=== PATIENT | female | born 1960 | race Caucasian/White ===

== ENCOUNTER 2017-12-05 05:14 | Inpatient (IN) | payer MEDICARE, OTHER ==
[2017-12-05] MEDS: CEFAZOLIN 2 GM/50 ML (PMX) 50 ML IVPB (05:30)
[2017-12-05] MEDS: SOD CHLORIDE 0.9% 50 ML, TRANEXAMIC ACID 1,000 MG IRR (05:30)
[2017-12-05] MEDS: LACTATED RINGER'S 1,000 ML IV* (06:19)
[2017-12-05] MEDS: ACETAMINOPHEN 1000MG/100ML IV 100 ML IVPB (06:19)
[2017-12-05] MEDS: DEXAMETHASONE 4 MG/ML 1 ML INJ IV (06:20)
[2017-12-05] MEDS: oxyCODONE (CR) 10 MG TAB [oxyCONTIN] PO (06:20)
[2017-12-05] MEDS: ONDANSETRON 4 MG INJ IV ×4 (06:20→23:25)
[2017-12-05] MEDS: LANSOPRAZOLE 30 MG CAP PO (06:20)
[2017-12-05] MEDS ORDERED: EPHEDrine SULFATE 50 MG/5 ML SYG (07:00)
[2017-12-05] MEDS ORDERED: CEFAZOLIN 1 GM INJ (07:00)
[2017-12-05] MEDS: TRANEXAMIC ACID 1,000 MG in DEXTROSE 5% 100 ML IVPB ×2 (07:41→10:05)
[2017-12-05] MEDS ORDERED: PROPOFOL 20 ML (07:44)
[2017-12-05] MEDS ORDERED: FENTAnyl 50 MCG/ML VIAL (07:44)
[2017-12-05] MEDS ORDERED: LIDOCAINE 2% (SDV) 5 ML INJ (07:44)
[2017-12-05] MEDS ORDERED: MIDAZOLAM 1 MG/ML 2 ML INJ (07:44)
[2017-12-05] MEDS ORDERED: METOCLOPRAMIDE 10 MG INJ (08:20)
[2017-12-05] MEDS ORDERED: FAMOTIDINE 20 MG INJ (08:20)
[2017-12-05] MEDS ORDERED: ONDANSETRON 4 MG INJ (08:20)
[2017-12-05] MEDS: BACITRACIN 50000 UNITS INJ (08:58)
[2017-12-05] MEDS: POLYMYXIN B 500000 UNIT INJ (08:58)
[2017-12-05] MEDS ORDERED: MEPERIDINE 25 MG INJ IV (09:30)
[2017-12-05] MEDS ORDERED: ONDANSETRON 4 MG INJ IV (09:30)
[2017-12-05] MEDS ORDERED: PROCHLORPERAZINE 10 MG INJ IV (09:30)
[2017-12-05] MEDS ORDERED: FENTAnyl 50 MCG/ML VIAL IV (09:30)
[2017-12-05] MEDS ORDERED: DIPHENHYDRAMINE 50 MG INJ IV (09:30)
[2017-12-05] MEDS: POLYMYXIN/BACITRACIN 1L IRRIG (11:21)
[2017-12-05] MEDS ORDERED: SENNA/DOCUSATE NA (8.6MG/50MG) TAB PO (11:30)
[2017-12-05] MEDS ORDERED: NALOXONE (0.4 MG/ML) INJ IV (11:30)
[2017-12-05] MEDS ORDERED: traMADol 50 MG TAB PO (11:30)
[2017-12-05] MEDS ORDERED: TRIMETHOBENZAMIDE 100 MG/ML VIAL IM (11:30)
[2017-12-05] MEDS ORDERED: oxyCODONE 5 MG TAB PO (11:30)
[2017-12-05] MEDS ORDERED: BETHANECHOL 25 MG TAB PO (11:30)
[2017-12-05] MEDS ORDERED: ZOLPIDEM 5 MG TAB PO (11:30)
[2017-12-05] MEDS ORDERED: NACL 0.9% 3 ML SYG IV (11:30)
[2017-12-05] MEDS ORDERED: NA PHOSPHATE/BIPHOS 133 ML ENEMA PR (11:30)
[2017-12-05] MEDS: ASPIRIN (EC) 325 MG TAB PO ×2 (11:56→20:12)
[2017-12-05] MEDS: DOCUSATE SODIUM 100 MG CAP PO (11:56)
[2017-12-05] MEDS: CEFAZOLIN 1 GM/50 ML (PMX) 50 ML IVPB ×2 (12:00→20:09)
[2017-12-05] MEDS: HYDROmorphONE (0.2 MG/ML) 10ML SYG IV ×2 (12:03→13:41)
[2017-12-05] MEDS: SOD CHLORIDE 0.9% 1,000 ML IV ×2 (13:15→23:27)
[2017-12-05] MEDS: HIP PAIN COCKTAIL (CEFUROXIME) INJ (13:20)
[2017-12-05] MEDS: oxyCODONE 5 MG TAB PO ×2 (14:53→18:37)
[2017-12-05] MEDS ORDERED: GLUCOSE GEL 15 GRAM TUBE PO ×2 (16:00)
[2017-12-05] MEDS ORDERED: GLUCOSE GEL 15 GRAM TUBE BUCCAL (16:00)
[2017-12-05] MEDS ORDERED: DEXTROSE 50% 50 ML SYRINGE IV ×2 (16:00)
[2017-12-05] MEDS ORDERED: GLUCAGON 1 MG INJ IM (16:00)
[2017-12-05] MEDS: GABAPENTIN 100 MG CAP PO (20:12)
[2017-12-05] MEDS: ATORVASTATIN 40 MG TAB PO (20:12)
[2017-12-06] MEDS: DIPHENHYDRAMINE 50 MG INJ IM (00:09)
[2017-12-06] MEDS: CEFAZOLIN 1 GM/50 ML (PMX) 50 ML IVPB (04:15)
[2017-12-06 05:00] LABS: ADD MAN DIFF? NO
[2017-12-06 05:05] LABS: BASOPHILS % 0.2 % (0.0-2.0); HEMATOCRIT 27.7 % (37.0-47.0); LYMPHOCYTES # 1.9 10^3/ul (0.8-2.9); LYMPHOCYTES % 15.4 % (15.0-51.0); MEAN CORPUSCULAR HEMOGLOBIN 29.7 pg (29.0-33.0); MEAN CORPUSCULAR HGB CONC 32.5 g/dl (32.0-37.0); MEAN CORPUSCULAR VOLUME 91.4 fl (82.0-101.0); MEAN PLATELET VOLUME 9.3 fl (7.4-10.4); MONOCYTE # 1.1 10^3/ul (0.3-0.9); MONOCYTES % 8.6 % (0.0-11.0); NEUTROPHIL # 9.1 10^3/ul (1.6-7.5); NEUTROPHILS % 75.3 % (39.0-77.0); PLATELET COUNT 234 10^3/UL (140-415); RED BLOOD COUNT 3.03 10^6/ul (4.20-5.40); RED CELL DISTRIBUTION WIDTH 13.8 % (11.5-14.5)
[2017-12-06 05:05] LABS: WHITE BLOOD COUNT 12.2 10^3/ul (4.8-10.8)
[2017-12-06 05:25] LABS: ANION GAP 13 (8-16); BLOOD UREA NITROGEN 13 mg/dl (7-20); CALCIUM 8.3 mg/dl (8.4-10.2); CARBON DIOXIDE 31 mmol/L (21-31); CHLORIDE 103 mmol/L (97-110); CREATININE 0.91 mg/dl (0.44-1.00); GLUCOSE 118 mg/dl (70-220); POTASSIUM 4.2 mmol/L (3.5-5.1); SODIUM 143 mmol/L (135-144)
[2017-12-06 05:28] LABS: MAGNESIUM 1.9 mg/dl (1.7-2.5)
[2017-12-06] MEDS: PANTOPRAZOLE (EC) 40 MG TAB PO (05:40)
[2017-12-06] MEDS: ONDANSETRON 4 MG INJ IV (05:40)
[2017-12-06] MEDS: METOPROLOL 50 MG TAB PO (08:37)
[2017-12-06] MEDS: DOCUSATE SODIUM 100 MG CAP PO ×2 (08:42→20:25)
[2017-12-06] MEDS: oxyCODONE 5 MG TAB PO ×3 (08:42→20:24)
[2017-12-06] MEDS: ASPIRIN (EC) 325 MG TAB PO ×2 (08:42→20:25)
[2017-12-06] MEDS: GABAPENTIN 100 MG CAP PO ×2 (08:43→20:24)
[2017-12-06] MEDS: FERROUS FUMARATE (SR) TAB PO ×2 (08:43→20:24)
[2017-12-06] MEDS: HYDROCHLOROTHIAZIDE 25 MG TAB PO (08:43)
[2017-12-06] MEDS: metFORMIN 500 MG TAB PO (08:44)
[2017-12-06] MEDS: CELECOXIB 200 MG CAP PO ×2 (08:44→20:25)
[2017-12-06] MEDS: SOD CHLORIDE 0.9% 1,000 ML IV ×2 (12:03→17:02)
[2017-12-06 12:33] LABS: ADD UMIC NO; UR ASCORBIC ACID NEGATIVE (NEGATIVE); UR BILIRUBIN (Dip) NEGATIVE (NEGATIVE); UR BLOOD (Dip) NEGATIVE (NEGATIVE); UR CLARITY CLEAR (CLEAR); UR COLOR STRAW (YELLOW); UR GLUCOSE (Dip) NEGATIVE (NEGATIVE); UR KETONES (Dip) NEGATIVE (NEGATIVE); UR LEUKOCYTE ESTERASE (Dip) NEGATIVE Leu/ul (NEGATIVE); UR NITRITE (Dip) NEGATIVE (NEGATIVE); UR SPECIFIC GRAVITY (Dip) 1.006 (1.003-1.030); UR TOTAL PROTEIN (Dip) NEGATIVE (NEGATIVE); UR UROBILINOGEN (Dip) NEGATIVE (NEGATIVE)
[2017-12-06] MEDS ORDERED: SOD CHLORIDE 0.9% 500 ML IV (17:00)
[2017-12-06] MEDS: ATORVASTATIN 40 MG TAB PO (20:25)
[2017-12-07] MEDS: oxyCODONE 5 MG TAB PO ×2 (00:20→11:18)
[2017-12-07] MEDS: SOD CHLORIDE 0.9% 1,000 ML IV (00:21)
[2017-12-07 05:11] LABS: ADD MAN DIFF? NO
[2017-12-07 05:15] LABS: WHITE BLOOD COUNT 8.9 10^3/ul (4.8-10.8)
[2017-12-07 05:15] LABS: BASOPHILS % 0.3 % (0.0-2.0); EOSINOPHILS % 0.3 % (0.0-7.0); HEMATOCRIT 25.8 % (37.0-47.0); HEMOGLOBIN 8.6 g/dl (12.0-16.0); LYMPHOCYTES # 1.6 10^3/ul (0.8-2.9); MEAN CORPUSCULAR HEMOGLOBIN 30.7 pg (29.0-33.0); MEAN CORPUSCULAR HGB CONC 33.3 g/dl (32.0-37.0); MEAN CORPUSCULAR VOLUME 92.1 fl (82.0-101.0); MEAN PLATELET VOLUME 9.9 fl (7.4-10.4); MONOCYTE # 0.8 10^3/ul (0.3-0.9); MONOCYTES % 9.4 % (0.0-11.0); NEUTROPHIL # 6.4 10^3/ul (1.6-7.5); NEUTROPHILS % 71.8 % (39.0-77.0); PLATELET COUNT 221 10^3/UL (140-415); RED CELL DISTRIBUTION WIDTH 13.7 % (11.5-14.5)
[2017-12-07 05:36] LABS: ANION GAP 11 (8-16); BLOOD UREA NITROGEN 11 mg/dl (7-20); CALCIUM 8.3 mg/dl (8.4-10.2); CARBON DIOXIDE 32 mmol/L (21-31); CHLORIDE 103 mmol/L (97-110); CREATININE 0.91 mg/dl (0.44-1.00); GLUCOSE 98 mg/dl (70-220); POTASSIUM 3.3 mmol/L (3.5-5.1); SODIUM 143 mmol/L (135-144)
[2017-12-07] MEDS: PANTOPRAZOLE (EC) 40 MG TAB PO (06:04)
[2017-12-07] MEDS: METOPROLOL 50 MG TAB PO ×2 (09:00→09:53)
[2017-12-07] MEDS: FERROUS FUMARATE (SR) TAB PO ×2 (09:47→21:22)
[2017-12-07] MEDS: DOCUSATE SODIUM 100 MG CAP PO ×2 (09:47→21:22)
[2017-12-07] MEDS: metFORMIN 500 MG TAB PO (09:48)
[2017-12-07] MEDS: GABAPENTIN 100 MG CAP PO ×2 (09:48→21:22)
[2017-12-07] MEDS: CELECOXIB 200 MG CAP PO ×2 (09:48→21:23)
[2017-12-07] MEDS: ASPIRIN (EC) 325 MG TAB PO ×2 (09:49→21:22)
[2017-12-07] MEDS: HYDROCHLOROTHIAZIDE 25 MG TAB PO (09:53)
[2017-12-07] MEDS: BISACODYL 10 MG SUPP PR (12:40)
[2017-12-07] MEDS: POTASSIUM CHLORIDE (SR) 20 MEQ TAB PO (12:50)
[2017-12-07] MEDS: ATORVASTATIN 40 MG TAB PO (21:22)
[2017-12-08 05:12] LABS: ADD MAN DIFF? NO
[2017-12-08 05:21] LABS: BASOPHILS % 0.4 % (0.0-2.0); EOSINOPHILS # 0.2 10^3/ul (0.0-0.5); HEMOGLOBIN 8.6 g/dl (12.0-16.0); LYMPHOCYTES # 1.6 10^3/ul (0.8-2.9); MEAN CORPUSCULAR HEMOGLOBIN 30.8 pg (29.0-33.0); MEAN CORPUSCULAR HGB CONC 33.1 g/dl (32.0-37.0); MEAN CORPUSCULAR VOLUME 93.2 fl (82.0-101.0); MONOCYTE # 0.7 10^3/ul (0.3-0.9); MONOCYTES % 9.2 % (0.0-11.0); NEUTROPHIL # 5.4 10^3/ul (1.6-7.5); NEUTROPHILS % 68.1 % (39.0-77.0); PLATELET COUNT 230 10^3/UL (140-415); RED BLOOD COUNT 2.79 10^6/ul (4.20-5.40); RED CELL DISTRIBUTION WIDTH 13.6 % (11.5-14.5)
[2017-12-08 05:21] LABS: WHITE BLOOD COUNT 7.9 10^3/ul (4.8-10.8)
[2017-12-08 05:51] LABS: ANION GAP 12 (8-16); BLOOD UREA NITROGEN 12 mg/dl (7-20); CALCIUM 8.3 mg/dl (8.4-10.2); CARBON DIOXIDE 32 mmol/L (21-31); CHLORIDE 102 mmol/L (97-110); CREATININE 0.85 mg/dl (0.44-1.00); GLUCOSE 94 mg/dl (70-220); POTASSIUM 3.6 mmol/L (3.5-5.1); SODIUM 142 mmol/L (135-144)
[2017-12-08] MEDS: PANTOPRAZOLE (EC) 40 MG TAB PO (05:56)
[2017-12-08] MEDS: METOPROLOL 50 MG TAB PO (09:00)
[2017-12-08] MEDS: HYDROCHLOROTHIAZIDE 25 MG TAB PO (09:00)
[2017-12-08] MEDS: CELECOXIB 200 MG CAP PO (09:11)
[2017-12-08] MEDS: FERROUS FUMARATE (SR) TAB PO (09:11)
[2017-12-08] MEDS: DOCUSATE SODIUM 100 MG CAP PO (09:11)
[2017-12-08] MEDS: metFORMIN 500 MG TAB PO (09:11)
[2017-12-08] MEDS: GABAPENTIN 100 MG CAP PO (09:11)
[2017-12-08] MEDS: ASPIRIN (EC) 325 MG TAB PO (09:12)
[2017-12-08] MEDS: MAGNESIUM HYDROXIDE 30ML CUP PO (11:32)
[2017-12-08] MEDS: LACTULOSE 30ML CUP PO (14:25)
[2017-12-08] MEDS: NA PHOSPHATE/BIPHOS 133 ML ENEMA PR (14:47)
== END 2017-12-08 16:20 | disposition home health service (06) | DRG 470 ==
LOC: REC 05:14 → MS1 12:46
PROVIDERS: Orthopaedic Surgery Adult Reconstructive Orthopaedic Surgery
PROC: 0SR904A Replacement of Right Hip Joint with Ceramic on Polyethylene Synthetic Substitute, Uncemented, Open Approach (ICD-10-PCS; principal; 2017-12-05 07:30)
DX: M16.11 Unilateral primary osteoarthritis, right hip (principal); I10 Essential (primary) hypertension; R73.03 Prediabetes; E78.5 Hyperlipidemia, unspecified; K59.00 Constipation, unspecified
CPT/HCPCS: 71045; 72170; 73500; 73530; 80048; 81003; 82962; 83735; 85025; 86850; 86900; 86901; 87081; 87086; 88304; 88311; 93005; 97116; 97165; 97530